=== PATIENT | male | born 1970 | race Caucasian/White ===

== ENCOUNTER 2025-01-12 00:27 | Emergency (ER) | payer OTHER ==
[~2025-01-12] VITALS: Ht 167.6 cm; Wt 88.8 kg
[2025-01-12 00:36] VITALS: TEMP 36.8; O2SAT 96
[2025-01-12 01:03] LABS: BASOPHILS % 1.0 % (0.0-2.0); EOSINOPHILS % 2.0 % (0.0-5.0); HEMATOCRIT. 49.0 % (42.0-52.0); HEMOGLOBIN. 17.3 g/dL (14.0-18.0); LYMPHOCYTES % 41.1 % (20.0-50.0); MEAN PLATELET VOLUME 8.4 fl (7.4-10.4); MONOCYTES % 6.5 % (2.0-8.0); NEUTROPHILS % 49.4 % (40.0-76.0); PLATELET 245 x1000/uL (130-400); RED BLOOD CELL COUNT 5.39 mill/uL (4.7-6.1); RED CELL DISTRIBUTION WIDTH 13.4 % (11.6-14.6)
[2025-01-12 01:13] LABS: CREATININE 0.8 mg/dL (0.6-1.3); UREA NITROGEN BLOOD 7 mg/dL (9-23)
[2025-01-12 01:15] LABS: TROPONIN I HIGH SENSITIVITY < 4 ng/L (3.0-53)
[2025-01-12] MEDS: MAGNESIUM/ALUMINUM HYDROXIDE/SIMETHICONE 30ML UDC PO ONE (02:33)
[2025-01-12] MEDS: SODIUM CHLORIDE 0.9% 1,000 ML IV ONE (02:33)
[2025-01-12] MEDS ORDERED: MAG-55 MT (04:05)
[2025-01-12 04:20] VITALS: BP 144/90; PULSE 72; RESP 16; O2SAT 99
== END 2025-01-12 04:21 | disposition home or self-care (01) ==
LOC: ER 00:49
DX: K21.9 Gastro-esophageal reflux disease without esophagitis (principal); E11.65 Type 2 diabetes mellitus with hyperglycemia
CPT/HCPCS: 99291; 96360; 80048; 82962; 85025; 84484; 36415; 71045; 93005; J7030